=== PATIENT | male | born 1990 | race Caucasian/White ===

== ENCOUNTER 2016-11-07 12:23 | Emergency (ER) | payer OTHER | END 2016-11-07 13:15 | disposition home or self-care (01) | LOC: FER 12:23 | DX: H00.014 Hordeolum externum left upper eyelid (principal); H10.12 Acute atopic conjunctivitis, left eye | CPT/HCPCS: 99283 ==

== ENCOUNTER 2016-11-10 23:03 | Emergency (ER) | payer OTHER ==
[2016-11-10 23:57] LABS: BASOPHIL 0.5 % (0-2); HCT 45.2 % (42.0-52.0); HGB 15.9 g/dl (13.2-18.0); LYMPHOCYTE 42.2 % (15-48); MCH 29.8 pg (25.0-31.0); MCHC 35.2 g/dL (32.0-36.0); MCV 84.6 fL (78.0-100.0); MONOCYTE 7.9 % (0-12); MPV 9.3 fL (6.0-9.5); NEUTROPHIL 46.4 % (41-80); PLT 262 K/uL (150-400); RBC 5.34 M/uL (4.70-6.00); RDW 12.5 % (11.5-14.0); WBC 8.7 K/uL (4.0-10.5)
[2016-11-11 00:12] LABS: ALBUMIN 4.5 g/dL (3.5-5.0); BILIRUBIN - TOTAL 0.3 mg/dL (0.1-1.0); GLOBULIN (CALCULATION) 2.9 g/dL (2.2-4.2); POTASSIUM 3.8 mmol/L (3.5-5.1); TOTAL PROTEIN 7.4 g/dL (6.4-8.3)
== END 2016-11-11 00:37 | disposition home or self-care (01) ==
LOC: FER 23:03
PROVIDERS: Emergency Medicine
DX: R07.89 Other chest pain (principal); R05 Cough; Z82.49 Family history of ischemic heart disease and other diseases of the circulatory system
CPT/HCPCS: 36415; 71010; 80053; 84484; 85025; 85379; 93005

== ENCOUNTER 2016-11-21 14:28 | Emergency (ER) | payer OTHER | END 2016-11-21 16:44 | disposition left against medical advice (07) | LOC: FER 14:28 | DX: R20.2 Paresthesia of skin (principal); Z82.3 Family history of stroke; Z82.49 Family history of ischemic heart disease and other diseases of the circulatory system | CPT/HCPCS: 70450 ==

== ENCOUNTER 2016-12-16 07:30 | Emergency (ER) | payer OTHER | END 2016-12-16 08:05 | disposition home or self-care (01) | LOC: FER 07:30 | DX: S46.811A Strain of other muscles, fascia and tendons at shoulder and upper arm level, right arm, initial encounter (principal); Z88.5 Allergy status to narcotic agent; Z88.6 Allergy status to analgesic agent | CPT/HCPCS: 73030; 99283 ==